=== PATIENT | female | born 1985 | race Caucasian/White ===

== ENCOUNTER 2019-02-06 14:18 | Emergency (ER) | payer BC ==
[2019-02-06] MEDS ORDERED: NS 0.9% 1000 ML** 1,000 ML IV ONE (14:24)
[2019-02-06 14:48] LABS: ABS Basophils 0.1 10^3/ul (0-0.2); ABS Eosinophils 0.3 10^3/ul (0-0.6); ABS Lymphocytes 2.8 10^3/ul (1.0-4.8); ABS Monocytes 0.4 10^3/ul (0-0.8); ABS Nucleated RBC 0 10^3/ul; Eosinophil % 3.9 %; Hematocrit 41 % (33-41); Lymphocyte % 36.8 %; Mean Corpuscular HGB Conc 34 g/dL (31-36); Mean Corpuscular Hemoglobin 31 pg (27-31); Mean Corpuscular Volume 90 fL (80-97); Mean Platelet Volume 8.7 fL (7.4-10.4); Nucleated Red Blood Cells % 0.1; Platelet Count 319 10^3/uL (150-450); Red Blood Count 4.53 10^6 /uL (3.70-4.87); Red Cell Distribution Width 13 % (10.5-15); White Blood Count 7.5 10^3/uL (3.5-10.8)
[2019-02-06 14:58] LABS: Activated Partial Thrombo Time 31.4 seconds (26.0-36.3); INR 0.95 (0.77-1.02)
[2019-02-06 15:06] LABS: ALT 10 U/L (7-52); AST 13 U/L (13-39); Albumin 4.4 g/dL (3.2-5.2); Albumin/Globulin Ratio 1.6 (1-3); Alkaline Phosphatase 48 U/L (34-104); Anion Gap 9 mmol/L (2-11); BUN/Creatinine Ratio 16.4 (8-20); Blood Urea Nitrogen 11 mg/dL (6-24); CO2 Carbon Dioxide 24 mmol/L (22-32); Calcium 9.2 mg/dL (8.6-10.3); Chloride 103 mmol/L (101-111); EGFR African American 122.7 (>60); EGFR Non-African American 101.4 (>60); Globulin 2.8 g/dL (2-4); Glucose 87 mg/dL (70-100); Magnesium 1.9 mg/dL (1.9-2.7); Potassium 3.6 mmol/L (3.5-5.0); Sodium 136 mmol/L (135-145); Total Protein 7.2 g/dL (6.4-8.9)
[2019-02-06 15:11] LABS: HCG Pregnancy 0.91 mIU/mL
[2019-02-06 15:18] LABS: Alcohol < 10 mg/dL (<10)
--- NOTE | 2019-02-06 17:32 | ED ---
Neurological HPI - HPI Summary HPI Summary: Patient is a 33 y/o F presenting to ED via ambulance with complaints of left sided facial numbness and black dots in vision/blurry vision. Patient reports that when she woke up at 0700 today, left facial numbness was present, visual Sx later onset progressively. Sx have persisted throughout the day. Patient states that she likely went to bed at around 2300 last night with no Sx. EMS reports Elderton scale zero and states that the patient had stated that Sx have mostly resolved. PMHx of seizures, patient is on Keppra, patient states that she has only had one previous seizure. Patient notes that she is progressively getting more anxious. When describing vision changes, she states that she is not seeing any curtains, states that her vision is blurry and that she is seeing black dots. Patient is prescribed glasses but claims that she has not worn them for years. BG is 88 per EMS. Patient arrival at 1417, provider to evaluate at 1418. On triage, pain is denied, nothing is noted to aggravate/ alleviate Sx. Home medications and allergies are reviewed. Home Medications Levetiracetam XR TAB(NF) [Keppra XR TAB(NF)] 2,500 mg PO QAM 02/06/19 [History Confirmed 02/06/19] Allergies Allergy/AdvReac Type Severity Reaction Status Date / Time amoxicillin Allergy Unknown Verified 02/06/19 14:45 Reaction Details - History of Current Complaint Chief Complaint: EDNeurologicalDeficit Stated Complaint: FACIAL NUMBESS PER EMS Hx Obtained From: Patient Onset/Duration: Started hours ago, Resolved Timing: Constant Current Severity: None Pain Intensity: 0 Pain Scale Used: 0-10 Numeric - 0/10 Character: Numbness/Tingling - left face, Visual Changes, Other: - anxious Aggravating: Nothing Alleviating: Nothing Associated Signs and Symptoms: Positive: Visual Changes - blurry vision/black dots in eyes, Numbness - left face, Anxiety - Allergy/Home Medications Allergies/Adverse Reactions: Allergies Allergy/AdvReac Type Severity Reaction Status Date / Time amoxicillin Allergy Unknown Verified 02/06/19 14:45 Reaction Details Home Medications: Home Medications Levetiracetam XR TAB(NF) [Keppra XR TAB(NF)] 2,500 mg PO QAM 02/06/19 [History Confirmed 02/06/19] PMH/Surg Hx/FS Hx/Imm Hx Sensory History: Denies: Hx Legally Blind, Hx Deafness Opthamlomology History: Denies: Hx Legally Blind EENT History: Denies: Hx Deafness Neurological History: Reports: Hx Migraine, Hx Seizures Psychiatric History: Reports: Hx Anxiety - Surgical History Surgery Procedure, Year, and Place: section, cholecystectomy Infectious Disease History: No Infectious Disease History: Denies: Traveled Outside the [place] in Last 30 Days - Family History Known Family History: Positive: Other - FMHx of migraines - Social History Alcohol Use: Occasionally Substance Use Type: Reports: None Smoking Status (MU): Never Smoked Tobacco Review of Systems Eyes: Other - POSITIVE - BLACK DOTS IN VISION Positive: Blurred Vision Positive: Numbness - left facial numbness Positive: Anxious All Other Systems Reviewed And Are Negative: Yes Physical Exam - Summary Physical Exam Summary: Appearance: Ill-appearing, no pain distress, anxious-appearing and tearful on arrival, well-nourished Skin: Warm, color reflects adequate perfusion, dry Head: Normal Head/Face inspection, atraumatic Eyes: Conjunctiva clear ENT: Normal inspection Neck: Supple, no nodes, no JVD Respiratory: Lungs clear, normal breath sounds, no respiratory distress Cardio: RRR, No murmur, pulses normal, brisk capillary refill Abdomen: Soft, nontender Bowel sounds: Present Musculoskeletal: Strength Intact/ROM intact, no calf tenderness, no edema. Psychological: Normal Neuro: Alert, muscle tone normal, no focal deficit; GCS 15, NIH 0 Triage Information Reviewed: Yes Vital Signs On Initial Exam: Initial Vitals Temp Pulse Resp BP Pulse Ox 99.7 F 100 24 137/85 99 02/06/19 14:25 02/06/19 14:25 02/06/19 14:25 02/06/19 14:25 02/06/19 14:25 Vital Signs Reviewed: Yes Diagnostics - Vital Signs Vital Signs Temp Pulse Resp BP Pulse Ox 02/06/19 15:37 84 19 131/83 97 02/06/19 14:55 98 02/06/19 14:25 99.7 F 100 24 137/85 99 - Laboratory Lab Results: Lab Results 02/06/19 02/06/19 02/06/19 Range/Units 14:38 14:38 14:38 WBC 7.5 (3.5-10.8) 10^3/uL RBC 4.53 (3.70-4.87) 10^6 /uL Hgb 14.0 (12.0-16.0) g/dL Hct 41 (33-41) % MCV 90 (80-97) fL MCH 31 (27-31) pg MCHC 34 (31-36) g/dL RDW 13 (10.5-15) % Plt Count 319 (150-450) 10^3/uL MPV 8.7 (7.4-10.4) fL Neut % (Auto) 53.1 % Lymph % (Auto) 36.8 % Dickenson % (Auto) 4.9 % Eos % (Auto) 3.9 % Baso % (Auto) 1.3 % Absolute Neuts (auto) 4.0 (1.5-7.7) 10^3/ul Absolute Lymphs (auto) 2.8 (1.0-4.8) 10^3/ul Absolute Monos (auto) 0.4 (0-0.8) 10^3/ul Absolute Eos (auto) 0.3 (0-0.6) 10^3/ul Absolute Basos (auto) 0.1 (0-0.2) 10^3/ul Absolute Nucleated RBC 0 10^3/ul Nucleated RBC % 0.1 INR (Anticoag Therapy) 0.95 (0.77-1.02) APTT 31.4 (26.0-36.3) seconds Sodium 136 (135-145) mmol/L Potassium 3.6 (3.5-5.0) mmol/L Chloride 103 (101-111) mmol/L Carbon Dioxide 24 (22-32) mmol/L Anion Gap 9 (2-11) mmol/L BUN 11 (6-24) mg/dL Creatinine 0.67 (0.51-0.95) mg/dL Est GFR ( Amer) 122.7 (>60) Est GFR (Non-Af Amer) 101.4 (>60) BUN/Creatinine Ratio 16.4 (8-20) Glucose 87 (70-100) mg/dL Lactic Acid (0.5-2.0) mmol/L Calcium 9.2 (8.6-10.3) mg/dL Magnesium 1.9 (1.9-2.7) mg/dL Total Bilirubin 0.30 (0.2-1.0) mg/dL AST 13 (13-39) U/L ALT 10 (7-52) U/L Alkaline Phosphatase 48 (34-104) U/L Troponin I 0.00 (<0.04) ng/mL Total Protein 7.2 (6.4-8.9) g/dL Albumin 4.4 (3.2-5.2) g/dL Globulin 2.8 (2-4) g/dL Albumin/Globulin Ratio 1.6 (1-3) TSH 1.20 (0.34-5.60) mcIU/mL Beta HCG, Quant 0.91 mIU/mL Serum Alcohol < 10 (<10) mg/dL 02/06/19 Range/Units 14:38 WBC (3.5-10.8) 10^3/uL RBC (3.70-4.87) 10^6 /uL Hgb (12.0-16.0) g/dL Hct (33-41) % MCV (80-97) fL MCH (27-31) pg MCHC (31-36) g/dL RDW (10.5-15) % Plt Count (150-450) 10^3/uL MPV (7.4-10.4) fL Neut % (Auto) % Lymph % (Auto) % Dickenson % (Auto) % Eos % (Auto) % Baso % (Auto) % Absolute Neuts (auto) (1.5-7.7) 10^3/ul Absolute Lymphs (auto) (1.0-4.8) 10^3/ul Absolute Monos (auto) (0-0.8) 10^3/ul Absolute Eos (auto) (0-0.6) 10^3/ul Absolute Basos (auto) (0-0.2) 10^3/ul Absolute Nucleated RBC 10^3/ul Nucleated RBC % INR (Anticoag Therapy) (0.77-1.02) APTT (26.0-36.3) seconds Sodium (135-145) mmol/L Potassium (3.5-5.0) mmol/L Chloride (101-111) mmol/L Carbon Dioxide (22-32) mmol/L Anion Gap (2-11) mmol/L BUN (6-24) mg/dL Creatinine (0.51-0.95) mg/dL Est GFR ( Amer) (>60) Est GFR (Non-Af Amer) (>60) BUN/Creatinine Ratio (8-20) Glucose (70-100) mg/dL Lactic Acid 2.0 (0.5-2.0) mmol/L Calcium (8.6-10.3) mg/dL Magnesium (1.9-2.7) mg/dL Total Bilirubin (0.2-1.0) mg/dL AST (13-39) U/L ALT (7-52) U/L Alkaline Phosphatase (34-104) U/L Troponin I (<0.04) ng/mL Total Protein (6.4-8.9) g/dL Albumin (3.2-5.2) g/dL Globulin (2-4) g/dL Albumin/Globulin Ratio (1-3) TSH (0.34-5.60) mcIU/mL Beta HCG, Quant mIU/mL Serum Alcohol (<10) mg/dL Result Diagrams: 02/06/19 14:38 02/06/19 14:38 Lab Statement: Any lab studies that have been ordered have been reviewed, and results considered in the medical decision making process. - CT BRAIN CT CT Interpretation Completed By: Radiologist Summary of CT Findings: IMPRESSION: NO ACUTE INTRACRANIAL PATHOLOGY. THIS REPORT WAS REVIEWED BY DR. RODRIGUEZ. - EKG 1500 Cardiac Rate: NL - RATE OF 90 BPM EKG Rhythm: Sinus Rhythm ST Segment: Non-Specific Ectopy: None EKG Comparison: Other - no prior EKGs Summary of EKG Findings: EKG showed sinus rhythm with rate of 90 BPM, normal AVIVCT, normal QTc, non-specific ST, no ectopy, no acute changes, no prior EKGs to compare with. NIH Scale - NIH Scale Level of Consciousness: Alert/Keenly Responsive Ask Patient the Month and His/Her Age: Both Correct Ask Pt to Open/Close Eyes and English Composition Teacher/Release Non-Paretic Hand: Both Correctly Best Gaze (Only Horizontal Eye Movement): Normal Visual Field Testing: No Visual Loss Facial Paresis-Pt to Smile & Close Eyes or Grimace Symmetry: Normal/Symmetrical Motor Function - Right Arm: No Drift-Holds 10 Seconds Motor Function - Left Arm: No Drift-Holds 10 Seconds Motor Function - Right Leg: No Drift-Holds 10 Seconds Motor Function - Left Leg: No Drift-Holds 10 Seconds Limb Ataxia-Must be out of Proportion to Weakness Present: Absent Sensory (Use Pinprick to Test Arms/Legs/Trunk/Face): Normal Best Language (Describe Picture, Name Items): No Aphasia Dysarthria (Read Several Words): Normal Extinction and Inattention: No Abnormality Total Score: 0 Re-Evaluation - Re-Evaluation First Eval Re-Evaluation Time: 18:19 Change: Unchanged Comment: Mother and patient's are present in the room at this time. Discussed results of imaging and tests so far. At present, patient reports that she still has blurry vision and that the entire left side of her face feels "hot ". She states that the area is not painful but just "burning". Vision is noted to be worse at the right side. Patient states that she did not experience seeing "curtains". PMHx of tooth break. No urinary symptoms reported. Will talk with Dr. Rios as patient is still experiencing Sx. Hx of seizure disorder since seven years ago. Patient has only had one seizure which was grand mal. Patient states that she has Hx of auras. She states that present Sx are dissimilar to her auras. She is on 2500 mg Keppra, noting that she takes 500 mg Keppra x5 daily all at once. Patient reports that Keppra levels are followed by Dr. Robert. Patient reports that she had also experienced a headache across her forehead which progressively worsened and is currently rated 4/10. She did not report this previously. Headache has been constant. Hx of migraines. Patient also notes at this time that she had experienced an episode of left arm numbness as well for a couple of hours which has since resolved. claims that the patient had been slurring her words as well. NIH was done. She drinks alcohol rarely, never smoked cigarettes, patient has one child. FMHx of migraines. Pulse 90, 02 97. Second Eval Re-Evaluation Time: 19:30 Change: Unchanged Comment: Discussed Dr. Robert's plan with patient and family, they are agreeable with plan at this time. Third Eval Re-Evaluation Time: 20:50 Change: Improved Comment: Patient reports improvement in Sx after Toradol, she will be discharged to home and follow up with Dr. Robert as discussed. Course/Dx - Course Course Of Treatment: Patient is a 33 y/o F presenting to ED via ambulance with complaints of left sided facial numbness and black dots in vision/blurry vision. Patient reports that when she woke up at 0700 today, left facial numbness was present, visual Sx later onset progressively. Sx have persisted throughout the day. Patient states that she likely went to bed at around 2300 last night with no Sx. EMS reports [place] scale zero and states that the patient had stated that Sx have mostly resolved. PMHx of seizures, patient is on Keppra, patient states that she has only had one previous seizure. Patient notes that she is progressively getting more anxious. When describing vision changes, she states that she is not seeing any curtains, states that her vision is blurry and that she is seeing black dots. Patient is prescribed glasses but claims that she has not worn them for years. BG is 88 per EMS. On physical exam , patient is noted to be anxious-appearing and tearful on arrival, GCS 15, NIH 0. BRAIN CT IMPRESSION: NO ACUTE INTRACRANIAL PATHOLOGY. EKG showed sinus rhythm with rate of 90 BPM, normal AVIVCT, normal QTc, non-specific ST, no ectopy, no acute changes, no prior EKGs to compare with. Labs were unremarkable , UA was negative, tox screen negative. Mother and patient's are present in the room at this time. Discussed results of imaging and tests so far. At present, patient reports that she still has blurry vision and that the entire left side of her face feels "hot". She states that the area is not painful but just "burning". Vision is noted to be worse at the right side. Patient states that she did not experience seeing "curtains". PMHx of tooth break. No urinary symptoms reported. Will talk with Dr. Rois as patient is still experiencing Sx. Hx of seizure disorder since seven years ago. Patient has only had one seizure which was grand mal. Patient states that she has Hx of auras. She states that present Sx are dissimilar to her auras. She is on 2500 mg Keppra, noting that she takes 500 mg Keppra x5 daily all at once. Patient reports that Keppra levels are followed by Dr. Robert. Patient reports that she had also experienced a headache across her forehead which progressively worsened and is currently rated 4/10. She did not report this previously. Headache has been constant. Hx of migraines. Patient also notes at this time that she had experienced an episode of left arm numbness as well for a couple of hours which has since resolved. claims that the patient had been slurring her words as well. NIH was done. She drinks alcohol rarely, never smoked cigarettes, patient has one child. Patient's case was discussed with Dr. Robert at 190, Dr. Robert recommends keppra 500 mg, toradol, and ativan. Differential diagnosis per Dr. Robert is seizure prodrome vs migraine. Dr. Robert recommends follow up as outpatient in her office. This was discussed with patient and patient's family, they are agreeable with plan. During ED course, patient received fluids, Ativan 0.5 mg IV PUSH, keppra 500 mg PO ONCE, Toradol 15 mg IV PUSH ONCE. Patient reports improvement in Sx after Toradol, she will be discharged to home and follow up with Dr. Robert as discussed. - Diagnoses Provider Diagnoses: History of seizure disorder, Facial paresthesia, Headache, History of migraine - Physician Notifications Discussed Care Of Patient With: Davida Robert Time Discussed With Above Provider: 19:01 Instructed by Provider To: Other - Patient's case was discussed with Dr. Robert at 1900, Dr. Robert recommends keppra 500 mg, toradol, and ativan. Differential diagnosis per Dr. Robert is seizure prodrome vs migraine. Dr. Robert recommends follow up as outpatient in her office. Discharge - Sign-Out/Discharge Documenting (check all that apply): Patient Departure - discharge Patient Received Moderate/Deep Sedation with Procedure: No - Discharge Plan Condition: Stable Disposition: HOME Patient Education Materials: Migraine Headache (ED), Epilepsy (ED) Referrals: Jamin Chou MD [Medical Doctor] - 3 Days Davida Robert MD [Medical Doctor] - 02/10/19 (February 10 at 1030am in the [place] office ) Additional Instructions: Your labs and the CT of your brain were all normal. In the ER you were given ketorolac 15mg IV, ativan 0.5mg IV and keppra 500mg (not extended release) as recommended by Dr. Robert. Dr. Robert believes your symptoms are possible migraine or a seizure prodrome based on Dr. Rodriguez's description of your symptoms. Dr. Robert is sr technical sales consultant all weekend and wants you to call her with any worsening of your symptoms. Dr. Robert will see you on February 10 at 10:30am in the [place] office. You should continue your usual dose of Keppra. There is a Keppra level that is pending at the time you are discharged. Dr. Chou and Dr. Robert will be able to check on the results of this test. Return to the ER if ou have any new or worsening symptoms. - Attestation Statements Document Initiated by [facility]: Yes Documenting Scribe: CATHY RAMIREZ Provider For Whom Chapo is Documenting (Include Credential): FABIENNE RODRIGUEZ MD Scribe Attestation: CATHY Hinton , scribed for FABIENNE RODRIGUEZ MD on 02/07/19 at 0058. Status of Scribe Document: Ready
[2019-02-06 18:50] LABS: Urine Appearance Cloudy; Urine Bilirubin Negative (Negative); Urine Blood Negative (Negative); Urine Color Yellow; Urine Glucose Negative (Negative); Urine Ketones Negative (Negative); Urine Nitrite Negative (Negative); Urine Protein Negative (Negative); Urine Specific Gravity 1.011 (1.010-1.030); Urine Urobilinogen Negative (Negative)
[2019-02-06] MEDS ORDERED: Ketorolac INJ* 30 MG/ML 1 ML VIAL IV PUSH ONE (18:59)
[2019-02-06] MEDS ORDERED: levETIRAcetam TAB* 500 MG PO ONE (19:14)
[2019-02-06 19:19] LABS: Urine Benzodiazepine Screen None Detected (None Detect); Urine Opiates Screen None Detected (None Detect)
[2019-02-06] MEDS ORDERED: LORazepam INJ* 2 MG/ML 1 ML VIAL IV PUSH ONE (19:33)
[2019-02-06] MEDS ORDERED: Lorazepam PYXIS KEY ONE (19:42)
[2019-02-07 01:40] VITALS: BP 128/76
== END 2019-02-06 21:00 | disposition home or self-care (01) ==
LOC: ED 14:18
DX: R20.0 Anesthesia of skin (principal); R51 Headache; G40.909 Epilepsy, unspecified, not intractable, without status epilepticus
CPT/HCPCS: 36415; 70450; 80053; 80177; 80307; 80320; 81003; 83605; 83735; 84443; 84484; 84702; 85025; 85610; 85730; 93005; 96360; 96374; 96375; 99283; A9270-GY; G0480; J1885; J2060